=== PATIENT | male | born 1940 | race Caucasian/White ===

== ENCOUNTER 2021-08-25 06:58 | Outpatient (CLI) | payer BC, MEDICARE | END 2021-08-25 23:59 | disposition home or self-care (01) | LOC: RT 06:58 | PROVIDERS: ATTEND Internal Medicine | DX: J98.4 Other disorders of lung (principal); R05.9 Cough, unspecified; R06.02 Shortness of breath; Z87.891 Personal history of nicotine dependence | CPT/HCPCS: 94010 ==